=== PATIENT | female | born 1940 | race Two or more races ===

== ENCOUNTER 2019-05-04 06:51 | Day surgery (SDC) | payer OTHER ==
[~2019-05-04 06:51] MED LIST: BENICAR5 MG PO; LABETALOL HCL100 MG PO; LEVOTHYROXINE25 MCG PO
== END 2019-05-04 12:20 | disposition home or self-care (01) ==
LOC: CIR.AMB 06:51
DX: G56.01 Carpal tunnel syndrome, right upper limb (principal)